=== PATIENT | female | born 1990 | race Caucasian/White ===

== ENCOUNTER 2018-01-31 01:13 | Emergency (ER) | payer MEDICAID ==
[~2018-01-31] VITALS: Ht 165.1 cm; Wt 60.0 kg
[~2018-01-31 01:13] MED LIST: FLUO20TA20 PO; QUET50TA PO; TRAZ100 PO
[2018-01-31 01:17] VITALS: BP 118/66; PULSE 120; RESP 14; O2SAT 100
[2018-01-31 03:58] VITALS: BP 101/61; PULSE 121; RESP 20; O2SAT 99
--- NOTE | 2018-01-31 06:50 | PD ---
HPI Chief Complaint: Alcohol/Drug Intoxication Time Seen by Provider: : Travel History International Travel<30 days: No Contact w/Intl Traveler<30days: No Traveled to known affect area: No History of Present Illness HPI Patient was intoxicated brought in by EMS she is obtunded but protecting her airway satting well vitals are normal she is arousable but we allow her to sleep no signs of injury to the head or any of the long bone report is that she was very intoxicated and friends called because she was so sedated, ROS and HPI limited due to intoxication PFSH Past Medical History Diminished Hearing: No Headaches: Yes (occasional) Hypertension: Yes (gestational only) Immunizations Current: Yes ?: Unknown : 1 Para: 1 Past Surgical History Section: Yes (X1 09/02/09) Social History Alcohol Use: Yes (SOCIALLY) Tobacco Use: Yes (< 1 PPD) Substance Use: Yes (marijuana) Allergies-Medications (Allergen,Severity, Reaction): Coded Allergies: penicillin G (Unverified Allergy, Severe, HIVES, SWELLING, 07/16/17) Reported Meds & Prescriptions Reported Meds & Active Scripts Active Reported Quetiapine Fumarate 50 mg (Quetiapine Fumarate) 50 Mg Tab 50 Mg PO DAILY Trazodone Hcl (Trazodone HCl) 100 Mg Tab 100 Mg PO HS Fluoxetine (Fluoxetine HCl) 20MG Cap 20 Mg PO DAILY Review of Systems ROS Limitations: Intoxication Physical Exam Narrative GENERAL: obtunded intox but airway intact o2 sat 98% on RA and no need for intubation at this time SKIN: Warm and dry. HEAD: Atraumatic. Normocephalic. no lac or signs of trauma. EYES: Pupils equal and round. No scleral icterus. No injection or drainage. ENT: No nasal bleeding or discharge. Mucous membranes pink and moist. NECK: Trachea midline. No JVD. CARDIOVASCULAR: Regular rate and rhythm. RESPIRATORY: No accessory muscle use. Clear to auscultation. Breath sounds equal bilaterally. GASTROINTESTINAL: Abdomen soft, non-tender, nondistended. Hepatic and splenic margins not palpable. MUSCULOSKELETAL: Extremities without clubbing, cyanosis, or edema. No obvious deformities. no lacerations or signs of trauma NEUROLOGICAL: intox unable to perform. PSYCHIATRIC: obtunded intox Data Data Last Documented VS Vital Signs Date Time Temp Pulse Resp B/P (MAP) Pulse Ox O2 Delivery O2 Flow Rate FiO2 3/2/18 08:18 01/31/18 07:09 Room Air Orders Orders Ed Discharge Order (01/31/18 07:01) MDM Medical Decision Making Medical Screen Exam Complete: Yes Emergency Medical Condition: Yes Differential Diagnosis Alcohol intoxication Narrative Course Patient is allowed to sleep examination of her head and long bones on arrival there is no signs of injury or trauma just smells of alcohol patient is allowed to sleep and IN AM EXAM REPEAT GENERAL: SKIN: Warm and dry. HEAD: Atraumatic. Normocephalic. EYES: Pupils equal and round. No scleral icterus. No injection or drainage. ENT: No nasal bleeding or discharge. Mucous membranes pink and moist. NECK: Trachea midline. No JVD. CARDIOVASCULAR: Regular rate and rhythm. RESPIRATORY: No accessory muscle use. Clear to auscultation. Breath sounds equal bilaterally. GASTROINTESTINAL: Abdomen soft, non-tender, nondistended. Hepatic and splenic margins not palpable. MUSCULOSKELETAL: Extremities without clubbing, cyanosis, or edema. No obvious deformities. NEUROLOGICAL: Awake and alert. No obvious cranial nerve deficits. Motor grossly within normal limits. Five out of 5 muscle strength in the arms and legs. Normal speech. PSYCHIATRIC: Appropriate mood and affect; insight and judgment normal. reevaluate in the morning she is awake alert conversant denies any injury examination of her head long bones abdomen nontender and she is discharged to follow-up as an outpatient Diagnosis Primary Impression: Alcohol intoxication without use disorder Qualified Codes: F10.920 - Alcohol use, unspecified with intoxication, uncomplicated Patient Instructions: Alcohol Intoxication (ED), General Instructions Disposition: 01 DISCHARGE HOME Condition: Trey Salcedo MD Jan 31, 2018 06:50
== END 2018-01-31 08:19 | disposition home or self-care (01) ==
LOC: NEPC 01:13
DX: F10.920 Alcohol use, unspecified with intoxication, uncomplicated (principal); F17.210 Nicotine dependence, cigarettes, uncomplicated; Z88.0 Allergy status to penicillin
CPT/HCPCS: 99281

== ENCOUNTER 2018-08-15 23:36 | Inpatient (IN) ==
[2018-08-15] MEDS ORDERED: Haloperidol Inj 5 MG/ML Ampul IM ONE (23:44)
[2018-08-15] MEDS ORDERED: Sod Chloride 0.9% Inj 1,000 ML IV.SIG SCH (23:45)
--- NOTE | 2018-08-16 00:31 | ED ---
HPI General Chief complaint: Psychiatric Symptoms Stated complaint: Psych [employer] Time Seen by Provider: 08/15/18 23:44 History of Present Illness HPI narrative: patient is a 28 year old female presents to the ER for evaluation under Pope Act. According to the BA, officer made contact with her and found her stating that she wanted to and was soon to be . She is belligerent on arrival, slipping her police handcuffs. She is preparing to spit on our security officers. When asked why she is here she responds "fine". She is asked repeatedly and states "i'm fine". She will not provide any history. When asked if she is having any cp/sob/abdominal pain/n.v.d. constipation she states no. The history and physical exam are performed with the nurse science technicians present at all times. Related Data Home Medications Medication Instructions Recorded Confirmed quetiapine [Seroquel] 100 mg PO BID 08/16/18 08/16/18 quetiapine [Seroquel] 400 mg PO HS 08/16/18 08/16/18 trazodone 200 mg PO DAILY 08/16/18 08/16/18 venlafaxine [Effexor XR] 225 mg PO DAILY 08/16/18 08/16/18 Allergies Allergy/AdvReac Type Severity Reaction Status Date / Time penicillin G Allergy Severe HIVES, Verified 08/16/18 01:36 SWELLING Review of Systems ROS: all other systems reviewed are negative [facility] Surgical History Surgical History No history of previous surgery (Acute) Family History Family History Mother Depression Grandparent Hypothyroidism Social History Social History Substance History: No History of Abuse Second Hand Smoke Exposure: No Smoking Status: Current every day smoker Tobacco Type: Cigarettes Packs Per Day: 1 Cigarettes Per Day: 20.0 Years Smoked: 8 Pack-Years: 8.00 How Often Do You Have a Drink Containing Alcohol: 2 to 3 times a week Recent Travel in [facility] within the Last 8 Weeks: No Recent Out of Country Travel within the Last 8 Weeks: No Exam Narrative Exam Narrative: GENERAL: WD/WN belligerent. SKIN: Focused skin assessment warm/dry. HEAD: Atraumatic. Normocephalic. EYES: Pupils equal and round. No scleral icterus. No injection or drainage. ENT: No nasal bleeding or discharge. Mucous membranes pink and moist. NECK: Trachea midline. No JVD. CARDIOVASCULAR: Regular rate and rhythm. No murmur appreciated. RESPIRATORY: No accessory muscle use. Clear to auscultation. Breath sounds equal bilaterally. GASTROINTESTINAL: Abdomen soft, non-tender, nondistended. Hepatic and splenic margins not palpable. MUSCULOSKELETAL: No obvious deformities. No clubbing. No cyanosis. No edema. NEUROLOGICAL: Awake and alert. No obvious cranial nerve deficits. Motor grossly within normal limits. Normal speech. PSYCHIATRIC: Belligerent, unable to assess further. Course Initial Documented Vital Signs Temperature 99.3 F 08/15/18 23:46 Pulse Rate 161 H 08/15/18 23:46 Respiratory Rate 18 08/15/18 23:46 Blood Pressure 171/70 H 08/15/18 23:46 Pulse Oximetry 96 08/15/18 23:46 Last Documented Vital Signs Temperature 98.3 F 08/17/18 05:41 Pulse Rate 90 08/17/18 05:41 Respiratory Rate 17 08/17/18 05:41 Blood Pressure 114/63 08/17/18 05:41 Pulse Oximetry 95 08/17/18 05:41 Sign Out Sign Out Data: Patient Sign Out occurred on 08/16/18 at 01:25. Patient's care was discussed, and care was transferred from Chato Freeman MD to Micaela Anguiano MD. Sign Out Comment: Follow up labs, ekg, reassess after fluids, sedation. HR was 161. Last updated by Chato Freeman MD at 08/16/18 01:12 Patient Sign Out occurred on 08/16/18 at 07:01. Patient's care was discussed, and care was transferred from Micaela Anguiano MD to Iris Watkins DO. Sign Out Comment: follow urine, reassess vitals after additional fluid and monitor after sedation given Last updated by Micaela Anguiano MD at 08/16/18 06:44 Post-Handoff Eval: Patient received as a sign-out from Dr. Anguiano. [id number] brought in under a Pope Act by police. As per BA form, the patient was listed as a missing or endanger person out of [facility], was found by officer crying and saying that she "wanted to and would soon be ". She arrived to the ED combative and agitation requiring sedation and restraints to prevent herself from harming herself or others. The patient is now awake and alert, says "I was at [facility] in May for alcohol, I wanted to go back , so I drank until I blacked out". She does not recall the events of last evening and denies current SI/ HI or hallucinations. Well-appearing, no agitation NCAT, PERRL Borderline tachy to 110s, regular Lungs clear bilaterally Abdomen soft and non-tender GCS 15, speech clear and fluent Calm, does not appear to be internally preoccupied Workup shows elevated EtOH, minimally elevated initial salicylate level ( trending down), drug screen/ APAP negative, TSH elevated but normal T4. Patient' s tachycardia is much improved with IV fluids. There is no medical contraindication to her being evaluated by psychiatry. Medical Decision Making MDM Narrative Medical decision making narrative: Patient room to the emergency department, gareth on arrival, she has a heart rate of 161 and she is adamantly refusing for any evaluation. She required sedation on arrival. She refuses sedation as well, I went to reexamine and interview the patient science technicians still present, asked her again when she was here for and she continued to state that she would not answer my questions because 1 of the nurses declined to give her Vaseline and she was the devil. She was placed in four-point restraints as he mainly as possible to avoid an injury, she was also chemically sedated with Ativan and Haldol. After sedation the patient is being her wrist restraint against the rail. Awaiting sedation 2 CAT scans of the patient can receive an IV normal saline bolus as well as basic labs and EKG. The patient was discussed with Dr. Micaela Anguiano at 0100 shift change. Medical Screen Exam Complete: Yes Emergency Medical Condition: Yes Lab Data Result diagrams: 08/16/18 02:59 08/16/18 02:59 POC Results POC Urine Results Negative Lab Results 08/16/18 08/16/18 08/16/18 Range/Units 00:05 00:05 02:59 WBC 12.8 H (4.0-11.0) th/mm3 RBC 4.59 (4.00-5.30) mil/mm3 Hgb 14.3 (11.6-15.3) gm/dL Hct 41.9 (35.0-46.0) % MCV 91.3 (80.0-100.0) fL MCH 31.3 (27.0-34.0) pg MCHC 34.2 (32.0-36.0) % RDW 13.1 (11.6-17.2) % Plt Count 249 (150-450) th/mm3 MPV 8.1 (7.0-11.0) fL Neut % (Auto) 67.0 (16.0-70.0) % Lymph % (Auto) 21.5 (9.0-44.0) % [place] % (Auto) 11.0 H (0.0-8.0) % Eos % (Auto) 0.1 (0.0-4.0) % Baso % (Auto) 0.4 (0.0-2.0) % Neut # (Auto) 8.5 H (1.8-7.7) th/mm3 Lymph # (Auto) 2.7 (1.0-4.8) th/mm3 [place] # (Auto) 1.4 H (0.0-0.9) th/mm3 Eos # (Auto) 0.0 (0.0-0.4) th/mm3 Baso # (Auto) 0.0 (0.0-0.2) th/mm3 WBC Differential . Differential Comment Auto diff final Sodium (136-145) meq/L Potassium (3.5-5.1) meq/L Chloride (98-107) meq/L Carbon Dioxide (21.0-32.0) meq/L Anion Gap (5-15) meq/L BUN (7-18) mg/dL Creatinine (0.50-1.00) mg/dL Estimated GFR (>89) mL/min Random Glucose (74-106) mg/dL Calcium (8.5-10.1) mg/dL Total Bilirubin (0.2-1.0) mg/dL AST (15-37) U/L ALT (10-53) U/L Alkaline Phosphatase (45-117) U/L Total Protein (6.4-8.2) g/dL Albumin (3.4-5.0) g/dL TSH (0.358-3.740) uIU/mL Free T4 (0.76-1.46) ng/dL Free T3 (2.18-3.98) pg/mL Urine Color Yellow (Yellw/Straw) Urine Clarity Cloudy H (Clear) Urine pH 5.0 (5.0-8.5) Ur Specific [place] 1.023 (1.002-1.035) Urine Protein 30 H (Neg-Trace) mg/dL Urine Glucose (UA) Negative (Negative) mg/dL Urine Ketones Negative (Negative) mg/dL Urine Occult Blood Negative (Negative) Urine Nitrate Negative (Negative) Urine Bilirubin Negative (Negative) Urine Urobilinogen Less than 2 (Less than 2) mg/dL Ur Leukocyte Esterase Negative (Negative) Urine RBC 5 H (0-3) /hpf Urine WBC 13 H (0-5) /hpf Ur Squamous Epith Cells 81 (0-5) /hpf Amorphous Sediment Few H (None) /hpf Urine Mucus Many H (Occasional) /lpf Micro UA Comment Culture indicated Ur Microscopic Review Not Reportable Urine Culture Comments Culture indicated Salicylates (2.8-20.0) mg/dL Urine Opiates Screen Neg (Neg) Acetaminophen (10.0-30.0) mcg/mL Ur Barbiturates Screen Neg (Neg) Ur Amphetamines Screen Neg (Neg) U Benzodiazepines Scrn Neg (Neg) Niotaze (0.5-1.5) meq/L Urine Cocaine Screen Neg (Neg) U Cannabinoids Screen Neg (Neg) Serum Alcohol (0-5) mg/dL 08/16/18 08/16/18 08/16/18 Range/Units 02:59 02:59 02:59 WBC (4.0-11.0) th/mm3 RBC (4.00-5.30) mil/mm3 Hgb (11.6-15.3) gm/dL Hct (35.0-46.0) % MCV (80.0-100.0) fL MCH (27.0-34.0) pg MCHC (32.0-36.0) % RDW (11.6-17.2) % Plt Count (150-450) th/mm3 MPV (7.0-11.0) fL Neut % (Auto) (16.0-70.0) % Lymph % (Auto) (9.0-44.0) % [place] % (Auto) (0.0-8.0) % Eos % (Auto) (0.0-4.0) % Baso % (Auto) (0.0-2.0) % Neut # (Auto) (1.8-7.7) th/mm3 Lymph # (Auto) (1.0-4.8) th/mm3 [place] # (Auto) (0.0-0.9) th/mm3 Eos # (Auto) (0.0-0.4) th/mm3 Baso # (Auto) (0.0-0.2) th/mm3 WBC Differential Differential Comment Sodium 146 H (136-145) meq/L Potassium 3.8 (3.5-5.1) meq/L Chloride 111 H (98-107) meq/L Carbon Dioxide 24.2 (21.0-32.0) meq/L Anion Gap 11 (5-15) meq/L BUN 10 (7-18) mg/dL Creatinine 0.93 (0.50-1.00) mg/dL Estimated GFR 72 L (>89) mL/min Random Glucose 104 (74-106) mg/dL Calcium 7.9 L (8.5-10.1) mg/dL Total Bilirubin 0.4 (0.2-1.0) mg/dL AST 21 (15-37) U/L ALT 18 (10-53) U/L Alkaline Phosphatase 62 (45-117) U/L Total Protein 7.9 (6.4-8.2) g/dL Albumin 4.2 (3.4-5.0) g/dL TSH 12.200 H (0.358-3.740) uIU/mL Free T4 (0.76-1.46) ng/dL Free T3 (2.18-3.98) pg/mL Urine Color (Yellw/Straw) Urine Clarity (Clear) Urine pH (5.0-8.5) Ur Specific [place] (1.002-1.035) Urine Protein (Neg-Trace) mg/dL Urine Glucose (UA) (Negative) mg/dL Urine Ketones (Negative) mg/dL Urine Occult Blood (Negative) Urine Nitrate (Negative) Urine Bilirubin (Negative) Urine Urobilinogen (Less than 2) mg/dL Ur Leukocyte Esterase (Negative) Urine RBC (0-3) /hpf Urine WBC (0-5) /hpf Ur Squamous Epith Cells (0-5) /hpf Amorphous Sediment (None) /hpf Urine Mucus (Occasional) /lpf Micro UA Comment Ur Microscopic Review Urine Culture Comments Salicylates 4.2 (2.8-20.0) mg/dL Urine Opiates Screen (Neg) Acetaminophen Less than 2.0 L (10.0-30.0) mcg/mL Ur Barbiturates Screen (Neg) Ur Amphetamines Screen (Neg) U Benzodiazepines Scrn (Neg) Niotaze 0.1 L (0.5-1.5) meq/L Urine Cocaine Screen (Neg) U Cannabinoids Screen (Neg) Serum Alcohol 153 H (0-5) mg/dL 08/16/18 08/16/18 Range/Units 02:59 09:25 WBC (4.0-11.0) th/mm3 RBC (4.00-5.30) mil/mm3 Hgb (11.6-15.3) gm/dL Hct (35.0-46.0) % MCV (80.0-100.0) fL MCH (27.0-34.0) pg MCHC (32.0-36.0) % RDW (11.6-17.2) % Plt Count (150-450) th/mm3 MPV (7.0-11.0) fL Neut % (Auto) (16.0-70.0) % Lymph % (Auto) (9.0-44.0) % [place] % (Auto) (0.0-8.0) % Eos % (Auto) (0.0-4.0) % Baso % (Auto) (0.0-2.0) % Neut # (Auto) (1.8-7.7) th/mm3 Lymph # (Auto) (1.0-4.8) th/mm3 [place] # (Auto) (0.0-0.9) th/mm3 Eos # (Auto) (0.0-0.4) th/mm3 Baso # (Auto) (0.0-0.2) th/mm3 WBC Differential Differential Comment Sodium (136-145) meq/L Potassium (3.5-5.1) meq/L Chloride (98-107) meq/L Carbon Dioxide (21.0-32.0) meq/L Anion Gap (5-15) meq/L BUN (7-18) mg/dL Creatinine (0.50-1.00) mg/dL Estimated GFR (>89) mL/min Random Glucose (74-106) mg/dL Calcium (8.5-10.1) mg/dL Total Bilirubin (0.2-1.0) mg/dL AST (15-37) U/L ALT (10-53) U/L Alkaline Phosphatase (45-117) U/L Total Protein (6.4-8.2) g/dL Albumin (3.4-5.0) g/dL TSH (0.358-3.740) uIU/mL Free T4 1.07 (0.76-1.46) ng/dL Free T3 4.77 H (2.18-3.98) pg/mL Urine Color (Yellw/Straw) Urine Clarity (Clear) Urine pH (5.0-8.5) Ur Specific [place] (1.002-1.035) Urine Protein (Neg-Trace) mg/dL Urine Glucose (UA) (Negative) mg/dL Urine Ketones (Negative) mg/dL Urine Occult Blood (Negative) Urine Nitrate (Negative) Urine Bilirubin (Negative) Urine Urobilinogen (Less than 2) mg/dL Ur Leukocyte Esterase (Negative) Urine RBC (0-3) /hpf Urine WBC (0-5) /hpf Ur Squamous Epith Cells (0-5) /hpf Amorphous Sediment (None) /hpf Urine Mucus (Occasional) /lpf Micro UA Comment Ur Microscopic Review Urine Culture Comments Salicylates 3.2 (2.8-20.0) mg/dL Urine Opiates Screen (Neg) Acetaminophen (10.0-30.0) mcg/mL Ur Barbiturates Screen (Neg) Ur Amphetamines Screen (Neg) U Benzodiazepines Scrn (Neg) Niotaze (0.5-1.5) meq/L Urine Cocaine Screen (Neg) U Cannabinoids Screen (Neg) Serum Alcohol (0-5) mg/dL ECG Data Attestation: I personally reviewed and interpreted this ECG as follows: Interpretation: Rate: 103 BPM Rhythm: Sinus arrhythmia Ashley: Normal Intervals: Normal intervals, no blocks, QTc 400 ms Q waves: None T waves: Upright, no inversions ST segments: No elevations or depressions Impression: Non-specific EKG, no changes as compared to EKG from 09/08/2009. Discharge Plan Discharge Disposition Patient Disposition: 30 Still Patient Physicians Team ED Provider: Iris Watkins Primary Care Provider: UNKNOWN, Attending Provider: Ken Quiles Other Providers: Nellie Cheney Status ED Status: Left Department Discharge Information Discharge Date/Time: 08/16/18 15:51
[2018-08-16 03:08] LABS: Baso % (Auto) 0.4 % (0.0-2.0); Eos % (Auto) 0.1 % (0.0-4.0); Hematocrit 41.9 % (35.0-46.0); Hemoglobin 14.3 gm/dL (11.6-15.3); Lymph # (Auto) 2.7 th/mm3 (1.0-4.8); Lymph % (Auto) 21.5 % (9.0-44.0); Mean Corpuscular HGB Conc 34.2 % (32.0-36.0); Mean Corpuscular Hemoglobin 31.3 pg (27.0-34.0); Mean Corpuscular Volume 91.3 fL (80.0-100.0); Mean Platelet Volume 8.1 fL (7.0-11.0); Mono # (Auto) 1.4 th/mm3 (0.0-0.9); Neut # (Auto) 8.5 th/mm3 (1.8-7.7); Platelet Count 249 th/mm3 (150-450); Red Blood Count 4.59 mil/mm3 (4.00-5.30); Red Cell Distribution Width 13.1 % (11.6-17.2); White Blood Count 12.8 th/mm3 (4.0-11.0)
[2018-08-16 03:31] LABS: Alanine Aminotransferase 18 U/L (10-53); Albumin 4.2 g/dL (3.4-5.0); Anion Gap 11 meq/L (5-15); Aspartate Aminotransferase 21 U/L (15-37); Blood Urea Nitrogen 10 mg/dL (7-18); Calcium 7.9 mg/dL (8.5-10.1); Carbon Dioxide 24.2 meq/L (21.0-32.0); Chloride 111 meq/L (98-107); Glomerular Filtration Rate 72 mL/min (>89); Glucose,Random 104 mg/dL (74-106); Potassium 3.8 meq/L (3.5-5.1); Sodium 146 meq/L (136-145)
[2018-08-16 03:37] LABS: Alcohol 153 mg/dL (0-5)
[2018-08-16 03:41] LABS: Alkaline Phosphatase 62 U/L (45-117); Total Protein 7.9 g/dL (6.4-8.2)
[2018-08-16 04:53] LABS: Amphetamine Screen,Urine Neg (Neg); Barbiturate Screen,Urine Neg (Neg); Cannabinoid Screen,Urine Neg (Neg); Cocaine Screen,Urine Neg (Neg)
[2018-08-16 05:00] LABS: Opiate Screen,Urine Neg (Neg)
[2018-08-16 05:36] LABS: Free T4 (Free Thyroxine) 1.07 ng/dL (0.76-1.46); Triiodothyronine (T3) Free 4.77 pg/mL (2.18-3.98)
[2018-08-16] MEDS: Sod Chloride 0.9% Inj 1,000 ML IV.SIG SCH ×2 (05:42→08:17)
[2018-08-16] MEDS ORDERED: Sod Chloride 0.9% Inj 1,000 ML IV.SIG SCH ×2 (05:45→06:15)
[2018-08-16 07:06] LABS: Amorphous Sediment,Urine Few /hpf; Bilirubin,Urine Negative (Negative); Clarity,Urine Cloudy (Clear); Color,Urine Yellow (Yellw/Straw); Glucose,Urine (UA) Negative (Negative); Leukocyte Esterase,Urine Negative (Negative); Mucus,Urine Many /lpf (Occasional); Nitrite,Urine Negative (Negative); Specific Gravity,Urine 1.023 (1.002-1.035); Squamous Epithelial Cell,Urine 81 /hpf (0-5)
[2018-08-16] MEDS ORDERED: QUEtiapine 100 MG Tablet PO ONE (07:47)
[2018-08-16] MEDS ORDERED: Sod Chloride 0.9% Inj 1,000 ML IV.SIG ONE (07:48)
--- NOTE | 2018-08-16 11:16 | P.PNPSY ---
Came to evaluate patient for Pope Act. She remains too intoxicated for valid psychiatric interview at this point. Will plan to re-eval later.
[2018-08-16] MEDS ORDERED: Benztropine Inj 2 MG/2 ML Ampul IM PRN (15:00)
[2018-08-16] MEDS ORDERED: Acetaminophen 325 MG Tablet PO PRN (15:00)
[2018-08-16] MEDS ORDERED: Aluminum/Magnesium/Simethacone Susp 30 ML UDC PO PRN (15:00)
--- NOTE | 2018-08-16 15:11 | P.HPPSY ---
Provisional Diagnosis Admission Date: August 15, 2018 23:36 Natalia I.: 1. Bipolar disorder, presently depressed 2. Alcohol use disorder Natalia II.: Deferred Competence Certification of Person's Competence To Provide Express and Informed Consent I have personally examined Solange Rain, a person being served at [facility] on, August 16, 2018 1510. Express and informed consent means consent voluntarily given in writing, by a competent person, after sufficient explanation and disclosure of the subject matter involved to enable the person to make a knowing and willful decision without any element of force, fraud, deceit, duress, or other form of constraint or coercion. This person is 18 years of age or older, is not now known to be incompetent to consent to treatment with a guardian advocate, and does not have a health care surrogate or proxy currently making medical treatment decisions. I have found this person to be one of the following: [X] Competent to provide express and informed consent, as defined above, for voluntary admission to this facility and is competent to provide express and informed consent for treatment. He/she has the consistent capacity to make well reasoned, willful, and knowing decisions concerning his or her medical or mental health treatment. The person fully and consistently understands the purpose of the admission for examination/placement and is fully capable of personally exercising all rights assured [place] Incompetent to provide express and informed consent to voluntary admission, and this is incompetent to provide express and informed consent to treatment. The person must be transferred to involuntary status and a petition for a guardian advocate filed with the Circuit Court. [] Refusing to provide express and informed consent to voluntary admission but is competent to provide express and informed consent for treatment. The person must be discharged or transferred to involuntary status. Form shall be completed within 24 hours of a person's arrival at the receiving facility and filed in the clinical record of each person: 1. Admitted on a voluntary basis 2. Permitted to provide express and informed consent to his/her own treatment 3. Allowed to transfer from involuntary to voluntary status 4. Prior to permitting a person to consent to his or her own treatment after having been previously found incompetent to consent to treatment. History of Present Illness Capacity: Has capacity Chief Complaint: Depression History of Present Illness: Ms. Rain is a 28-year-old female with a reported history of bipolar illness and anxiety who presents under a Pope act by law enforcement alleging suicidal ideation. She was intoxicated with alcohol on presentation here and was somewhat combative. Reviewing the electronic medical record, I note that the patient has a history of ED visits for substance use issues but no previous psychiatric admissions within our system. Patient seen and examined. Chart reviewed. Case discussed with nursing staff. On my reevaluation now, the patient is considerably clearer. She is clinically sober. She presents as anhedonic and withdrawn. She says that she has been feeling depressed for the last 1-2 months in the setting of trying to cut down her alcohol use. She endorses hopeless, worthless and guilty feelings. Her concentration and energy levels are poor. She denies any suicidal ideation at this time though and says she has no recollection of making any sort of suicidal statements to officers. She reports a questionable history of hypomanic/manic episodes in the past. Denies any audiovisual hallucinations. Denies any command auditory hallucinations. She says "I do not have a lot of hopes." Remainder of the psychiatric ROS is negative. No acute physical complaints. Past psychiatric history: Patient reports previous diagnoses as noted above. She follows at [facility] and is reportedly prescribed Seroquel. She reports that, Effexor and trazodone. She does not believe that the daytime dose of Seroquel is holding her throughout the day. She was most recently admitted to [facility] in May for suicidal ideation in the setting of alcohol. She denies a history of suicide attempts. Denies a history of nonsuicidal self- injurious behavior. She does endorse a history of domestic battery charges but otherwise reports no history of violence behavior. Family history: The patient denies a family history of mental illness or suicide. Chemical dependency history: The patient reports she has been drinking 1-2 pints of liquor daily. Last use was prior to admission. She denies a history of DTs or seizures. She does endorse a history of 2 previous DUIs. No reported substance use otherwise. Social history: She lives with her cousin. She is high school educated. She is unemployed. She is single with a 9-year-old daughter who resides with her mother. She denies any history. Denies any legal history. Denies any access to guns or firearms. Denies any nondenominational or spiritual beliefs. Denies any history of trauma. I called over to [facility] for med list: Seroquel 50mg BID and 400mg qHS Effexor XR 225mg daily trazodone 200mg qHS. - Inpatient Certification I certify that the inpatient services were ordered in accordance with Medicare regulations governing the order. This includes certification that hospital inpatient services are reasonable and necessary and in the case of services not specified as inpatient-only under 42 CFR 419.22(n), that they are appropriately provided as inpatient services in accordance to with the 2-midnight benchmark under 43 CFR 412.3(e) I certify that inpatient psychiatric hospital services are medically necessary. Evaluation and treatment and/or diagnostic testing are expected to improve the patient's condition. The patient needs on a daily basis, active treatment furnished directly by or requiring the supervision of inpatient psychiatric facility personnel. Estimated Total Length of Stay (Days): 7 Plans for Post Hospital Care: Not yet determined Review of Systems All other systems reviewed negative except as stated in [facility] - History History Provided By: Law Enforcement - Medical History Medical History: Medical History (Last Updated 08/15/18 @ 23:50 by Ye Hester) Patient denies medical problems Surgical history unknown - Tobacco History Tobacco Use In Past 30 Days: Yes Smoking Status: Current every day smoker Tobacco Type: Cigarettes - Alcohol History How Often Do You Have a Drink Containing Alcohol: 4 or more times a week - Substance Use History Substance History: Active Abuse - Travel History Recent Travel in the [place] Within the Last 8 Weeks: No Recent Travel Out of the Country Within the Last 8 Weeks: No - Immunization History Tetanus Immunization: >5 Years Hx Influenza Vaccine This Season: No Quality Measures - Psychiatric History Psychological trauma history: See above - Patient Strengths Patient's strengths (minimum of 2): In a monitored setting. Verbally fluent. Medications and Allergies Active Medications: Active Medications Acetaminophen (Tylenol) 650 mg PO Q4H PRN PRN Reason: Pain 1-5 or Temp >101F Al Hydrox/Mg Hydrox/Simethicone (Mag-Al Plus Susp Liq) 30 ml PO Q6H PRN PRN Reason: DYSPEPSIA Al Hydroxide/Mg Hydroxide (Milk Of Magnesia Liq) 30 ml PO Q12H PRN PRN Reason: Mild Constipation Benztropine Mesylate (Cogentin) 1 mg PO Q12H PRN PRN Reason: EXTRA PYRAMIDAL SYMPTOMS Benztropine Mesylate (Cogentin Inj) 1 mg IM Q12H PRN PRN Reason: EXTRA PYRAMIDAL SYMPTOMS Flumazenil (Romazecon Inj) 0.2 mg IV.PUSH Q1M PRN PRN Reason: OVERSEDATION Folic Acid (Folic Acid) 1 mg PO DAILY [facility] Stop: 08/22/18 08:59 Hydroxyzine HCl (Atarax) 50 mg PO Q6H PRN PRN Reason: ANXIETY Sodium Chloride (Ns Inj) 1,000 mls @ 0 mls/hr IV.SIG BOLUS ANA Last Infusion: 08/16/18 09:59 Dose: Infused Sodium Chloride (Ns Inj) 1,000 mls @ 0 mls/hr IV.SIG BOLUS ANA Sodium Chloride (Ns Inj) 1,000 mls @ 0 mls/hr IV.SIG BOLUS ANA Lorazepam (Ativan) 1 mg PO Q4H PRN PRN Reason: for CIWA 8-10 Lorazepam (Ativan) 2 mg PO Q2H PRN PRN Reason: for CIWA 11-14 Lorazepam (Ativan Inj) 2 mg IV.PUSH Q2H PRN PRN Reason: for CIWA 11-14 Lorazepam (Ativan Inj) 2 mg IV.PUSH Q1H PRN PRN Reason: for CIWA 15-20 Lorazepam (Ativan Inj) 2 mg IV.PUSH Q15M PRN PRN Reason: for CIWA > 20 Lorazepam (Ativan Inj) 1 mg IV.PUSH Q4H PRN PRN Reason: for CIWA 8-10 Melatonin (Melatonin) 5 mg PO HS PRN PRN Reason: INSOMNIA Multivitamins/Minerals (Theragran-M) 1 tab PO DAILY [facility] Stop: 08/22/18 08:59 Nicotine (Habitrol 21 Mg Patch.24 Hr) 1 patch T-DERMAL DAILY PRN PRN Reason: Nicotine craving Non-Formulary Medication (Quetiapine [Seroquel]) 400 mg PO HS [facility] Patch Removal (Remove Old Patch) 1 each T-DERMAL DAILY [facility] Quetiapine Fumarate (Seroquel) 100 mg PO BID@15 [facility] Thiamine HCl (Vitamin B1) 100 mg PO DAILY [facility] Trazodone HCl (Desyrel) 200 mg PO HS [facility] Venlafaxine HCl (Effexor Xr) 225 mg PO DAILY [facility] Allergies Allergy/AdvReac Type Severity Reaction Status Date / Time penicillin G Allergy Severe HIVES, Verified 08/16/18 01:36 SWELLING Home Medications Medication Instructions Recorded Confirmed Type quetiapine [Seroquel] 100 mg PO BID 08/16/18 08/16/18 History quetiapine [Seroquel] 400 mg PO HS 08/16/18 08/16/18 History trazodone 200 mg PO DAILY 08/16/18 08/16/18 History venlafaxine [Effexor XR] 225 mg PO DAILY 08/16/18 08/16/18 History Results - Labs CBC & Chem 7: 08/16/18 02:59 08/16/18 02:59 Labs: Laboratory Results - last 24 hr 08/16/18 08/16/18 08/16/18 00:05 00:05 02:59 WBC 12.8 H RBC 4.59 Hgb 14.3 Hct 41.9 MCV 91.3 MCH 31.3 MCHC 34.2 RDW 13.1 Plt Count 249 MPV 8.1 Neut % (Auto) 67.0 Lymph % (Auto) 21.5 Real % (Auto) 11.0 H Eos % (Auto) 0.1 Baso % (Auto) 0.4 Neut # (Auto) 8.5 H Lymph # (Auto) 2.7 Real # (Auto) 1.4 H Eos # (Auto) 0.0 Baso # (Auto) 0.0 WBC Differential . Differential Comment Auto diff final Sodium Potassium Chloride Carbon Dioxide Anion Gap BUN Creatinine Estimated GFR Random Glucose Calcium Total Bilirubin AST ALT Alkaline Phosphatase Total Protein Albumin TSH Free T4 Free T3 Urine Color Yellow Urine Clarity Cloudy H Urine pH 5.0 Ur Specific [place] 1.023 Urine Protein 30 H Urine Glucose (UA) Negative Urine Ketones Negative Urine Occult Blood Negative Urine Nitrate Negative Urine Bilirubin Negative Urine Urobilinogen Less than 2 Ur Leukocyte Esterase Negative Urine RBC 5 H Urine WBC 13 H Ur Squamous Epith Cells 81 Amorphous Sediment Few H Urine Mucus Many H Micro UA Comment Culture indicated Ur Microscopic Review Not Reportable Urine Culture Comments Culture indicated Salicylates Urine Opiates Screen Neg Acetaminophen Ur Barbiturates Screen Neg Ur Amphetamines Screen Neg U Benzodiazepines Scrn Neg [address] Urine Cocaine Screen Neg U Cannabinoids Screen Neg Serum Alcohol 08/16/18 08/16/18 08/16/18 02:59 02:59 02:59 WBC RBC Hgb Hct MCV MCH MCHC RDW Plt Count MPV Neut % (Auto) Lymph % (Auto) Real % (Auto) Eos % (Auto) Baso % (Auto) Neut # (Auto) Lymph # (Auto) Real # (Auto) Eos # (Auto) Baso # (Auto) WBC Differential Differential Comment Sodium 146 H Potassium 3.8 Chloride 111 H Carbon Dioxide 24.2 Anion Gap 11 BUN 10 Creatinine 0.93 Estimated GFR 72 L Random Glucose 104 Calcium 7.9 L Total Bilirubin 0.4 AST 21 ALT 18 Alkaline Phosphatase 62 Total Protein 7.9 Albumin 4.2 TSH 12.200 H Free T4 Free T3 Urine Color Urine Clarity Urine pH Ur Specific [place] Urine Protein Urine Glucose (UA) Urine Ketones Urine Occult Blood Urine Nitrate Urine Bilirubin Urine Urobilinogen Ur Leukocyte Esterase Urine RBC Urine WBC Ur Squamous Epith Cells Amorphous Sediment Urine Mucus Micro UA Comment Ur Microscopic Review Urine Culture Comments Salicylates 4.2 Urine Opiates Screen Acetaminophen Less than 2.0 L Ur Barbiturates Screen Ur Amphetamines Screen U Benzodiazepines Scrn [address] 0.1 L Urine Cocaine Screen U Cannabinoids Screen Serum Alcohol 153 H 08/16/18 08/16/18 02:59 09:25 WBC RBC Hgb Hct MCV MCH MCHC RDW Plt Count MPV Neut % (Auto) Lymph % (Auto) Real % (Auto) Eos % (Auto) Baso % (Auto) Neut # (Auto) Lymph # (Auto) Real # (Auto) Eos # (Auto) Baso # (Auto) WBC Differential Differential Comment Sodium Potassium Chloride Carbon Dioxide Anion Gap BUN Creatinine Estimated GFR Random Glucose Calcium Total Bilirubin AST ALT Alkaline Phosphatase Total Protein Albumin TSH Free T4 1.07 Free T3 4.77 H Urine Color Urine Clarity Urine pH Ur Specific [place] Urine Protein Urine Glucose (UA) Urine Ketones Urine Occult Blood Urine Nitrate Urine Bilirubin Urine Urobilinogen Ur Leukocyte Esterase Urine RBC Urine WBC Ur Squamous Epith Cells Amorphous Sediment Urine Mucus Micro UA Comment Ur Microscopic Review Urine Culture Comments Salicylates 3.2 Urine Opiates Screen Acetaminophen Ur Barbiturates Screen Ur Amphetamines Screen U Benzodiazepines Scrn [address] Urine Cocaine Screen U Cannabinoids Screen Serum Alcohol Labs reviewed. Urinalysis reviewed. Urine culture pending. ED point of care test negative. EKG read as sinus tachycardia with a QTC of 413 ms, not prolonged. Exam Vital signs: Vital Signs 08/15/18 23:46 08/16/18 03:19 08/16/18 05:40 Temperature 99.3 F Pulse Rate 161 H 130 H Respiratory Rate 18 18 Blood Pressure 171/70 H 171/70 H 130/79 Pulse Oximetry 96 97 08/16/18 07:00 08/16/18 07:15 08/16/18 08:25 Temperature 99.6 F Pulse Rate 107 H 107 H 110 H Respiratory Rate 20 Blood Pressure 125/81 Pulse Oximetry 98 08/16/18 11:22 08/16/18 14:30 Temperature 99.5 F Pulse Rate 130 H 95 H Respiratory Rate 20 20 Blood Pressure 128/86 128/66 Pulse Oximetry 98 99 Intake & Output 08/15/18 08/16/18 08/16/18 18:59 06:59 18:59 Intake Total 1999 Balance 1999 Weight 72.575 kg Intake: IV 1999 NS Inj 1,000 ML @ Wide Open IV. 1999 SIG BOLUS ANA Rx#:[id number] Narrative: Physical examination completed by ED provider. On my examination today, the patient appears to be in no acute physical distress. No motor abnormalities noted. No signs of intoxication or withdrawal noted at this point. Labs and vital signs reviewed: Mental Status Examination Appearance: Disheveled Consciousness: Alert Orientation: x4 Motor Activity: Normal gait Speech: Slow Language: Adequate Fund of Knowledge: Adequate Attention and Concentration: Adequate Memory: Unremarkable (Grossly intact on clinical exam) Mood: Other (Depressed) Affect: Other (Restricted) Thought Process & Associations: Intact, Logical, Linear Thought Content: Appropriate Hallucination Type: None Delusion Type: None Suicidal Ideation: No Suicidal Plan: No Suicidal Intention: No Homicidal Ideation: No Homicidal Plan: No Homicidal Intention: No Insight: Fair Judgment: Impulsive Assessment and Plan - Assessment (1) Bipolar affective disorder, depressed Code(s): F31.30 - Bipolar disorder, current episode depressed, mild or moderate severity, unspecified Status: Acute (2) Alcohol dependence Code(s): F10.20 - Alcohol dependence, uncomplicated Status: Acute - Plan Plan: 28-year-old female with psychiatric history as detailed above who presents under a Pope act. Patient was making suicidal statements per Pope act. Although she presently denies suicidal ideation she does appear quite depressed and has several risk factors for ongoing self-harm including the low mood and substance use issues. I will plan to admit the patient to the inpatient psychiatric unit for safety, observation and stabilization. Admit inpatient. Voluntary status. Titrate Seroquel to 100 mg twice a day and 400 mg at bedtime. Continue Effexor 225 mg daily and trazodone 200 mg at bedtime as ordered on an outpatient basis. Atarax as needed for anxiety, melatonin as needed for sleep. CIWA scale with Ativan for the management of any withdrawal. Thiamine and folate. Seizure precautions. R/B/A for medications discussed with patient. I will request hospitalist consultation for her laboratory abnormalities. Vitals every shift. Counselor to see. Disposition planning. Estimated length of stay: 5-7 days. Justification for Continued Inpatient Stay: See above Discharge Planning: Pending psychiatric stabilization. Request Healthcare Surrogate/Guardian Advocate?: No
--- NOTE | 2018-08-16 16:23 | P.CONIM ---
History of Present Illness Service: Hospitalist Consult date: 08/16/18 Requesting Physician: Ken Quiles Reason for Consult: Leukocytosis, abnormal TFTs Primary Care Provider: UNKNOWN History of Present Illness: 28 year old female with a history of bipolar disorder, anxiety, and EtOH abuse admitted under [place] to psychiatry for alleging suicidal ideation to law enforcement. The patient presented acutely intoxicated and combative requiring Ativan, Haldol, and restraints. On my evaluation, she is much more calm, cooperative, and off restraints. She reports she is here for "alcohol and stuff." She states she has a history of EtOH abuse drinking 2-3 pints of any liquor daily. Last drink was yesterday but prior to that she states she had tried to quit and hadn't had anything to drink for about a week. She denies any current suicidal ideations. She admits to feeling depressed. When inquired about symptoms of hypothyroidism, she states that she has had unintentional weight gain but she always attributed it to her meds. She also endorses constipation, dry skin, cold intolerance, and irregular menstrual cycles. She reports her grandmother has hypothyroidism. She agrees to start medication for it and understands that she will need outpatient follow-up and monitoring. Regarding the leukocytosis, she endorses intermittent dysuria that is resolved with cranberry juice. She denies cough, fever, shortness of breath, or skin rash. Review of Systems All other systems reviewed negative except as stated in HPI PMFSH - History History Provided By: Patient - Medical History Medical History: Medical History (Last Reviewed 08/16/18 @ 16:35 by Nellie Cheney MD) Bipolar disorder Depression - Surgical History Surgical History: Surgical History (Last Updated 08/16/18 @ 16:35 by Nellie Cheney MD) No history of previous surgery - Family History Family History: Family History (Last Updated 08/16/18 @ 16:35 by Nellie Cheney MD) Mother Depression Grandparent Hypothyroidism - Tobacco History Tobacco Use In Past 30 Days: Yes Smoking Status: Current every day smoker Tobacco Type: Cigarettes Packs Per Day: 1 Years Smoked: 8 - Alcohol History How Often Do You Have a Drink Containing Alcohol: 4 or more times a week (2-3 pints of liquor daily) - Substance Use History Substance History: Active Abuse - Travel History Recent Travel in the [place] Within the Last 8 Weeks: No Recent Travel Out of the Country Within the Last 8 Weeks: No - Immunization History Tetanus Immunization: >5 Years Hx Influenza Vaccine This Season: No Medications and Allergies Active Medications: Active Medications Acetaminophen (Tylenol) 650 mg PO Q4H PRN PRN Reason: Pain 1-5 or Temp >101F Al Hydrox/Mg Hydrox/Simethicone (Mag-Al Plus Susp Liq) 30 ml PO Q6H PRN PRN Reason: DYSPEPSIA Al Hydroxide/Mg Hydroxide (Milk Of Magnesia Liq) 30 ml PO Q12H PRN PRN Reason: Mild Constipation Benztropine Mesylate (Cogentin) 1 mg PO Q12H PRN PRN Reason: EXTRA PYRAMIDAL SYMPTOMS Benztropine Mesylate (Cogentin Inj) 1 mg IM Q12H PRN PRN Reason: EXTRA PYRAMIDAL SYMPTOMS Flumazenil (Romazecon Inj) 0.2 mg IV.PUSH Q1M PRN PRN Reason: OVERSEDATION Folic Acid (Folic Acid) 1 mg PO DAILY ANA Stop: 08/22/18 08:59 Hydroxyzine HCl (Atarax) 50 mg PO Q6H PRN PRN Reason: ANXIETY Sodium Chloride (Ns Inj) 1,000 mls @ 0 mls/hr IV.SIG BOLUS ANA Last Infusion: 08/16/18 09:59 Dose: Infused Sodium Chloride (Ns Inj) 1,000 mls @ 0 mls/hr IV.SIG BOLUS ANA Sodium Chloride (Ns Inj) 1,000 mls @ 0 mls/hr IV.SIG BOLUS ANA Lorazepam (Ativan) 1 mg PO Q4H PRN PRN Reason: for CIWA 8-10 Lorazepam (Ativan) 2 mg PO Q2H PRN PRN Reason: for CIWA 11-14 Lorazepam (Ativan Inj) 2 mg IV.PUSH Q2H PRN PRN Reason: for CIWA 11-14 Lorazepam (Ativan Inj) 2 mg IV.PUSH Q1H PRN PRN Reason: for CIWA 15-20 Lorazepam (Ativan Inj) 2 mg IV.PUSH Q15M PRN PRN Reason: for CIWA > 20 Lorazepam (Ativan Inj) 1 mg IV.PUSH Q4H PRN PRN Reason: for CIWA 8-10 Melatonin (Melatonin) 5 mg PO HS PRN PRN Reason: INSOMNIA Multivitamins/Minerals (Theragran-M) 1 tab PO DAILY ANA Stop: 08/22/18 08:59 Nicotine (Habitrol 21 Mg Patch.24 Hr) 1 patch T-DERMAL DAILY PRN PRN Reason: Nicotine craving Patch Removal (Remove Old Patch) 1 each T-DERMAL HS PRN PRN Reason: REMOVE OLD NICOTINE PATCH Quetiapine Fumarate (Seroquel) 100 mg PO BID@ ANA Quetiapine Fumarate (Seroquel) 400 mg PO HS ANA Thiamine HCl (Vitamin B1) 100 mg PO DAILY ANA Trazodone HCl (Desyrel) 200 mg PO HS ANA Venlafaxine HCl (Effexor Xr) 225 mg PO DAILY ANA Allergies Allergy/AdvReac Type Severity Reaction Status Date / Time penicillin G Allergy Severe HIVES, Verified 08/16/18 01:36 SWELLING Home Medications Medication Instructions Recorded Confirmed Type quetiapine [Seroquel] 100 mg PO BID 08/16/18 08/16/18 History quetiapine [Seroquel] 400 mg PO HS 08/16/18 08/16/18 History trazodone 200 mg PO DAILY 08/16/18 08/16/18 History venlafaxine [Effexor XR] 225 mg PO DAILY 08/16/18 08/16/18 History Exam Vital signs: Vital Signs 08/15/18 23:46 08/16/18 03:19 08/16/18 05:40 Temperature 99.3 F Pulse Rate 161 H 130 H Respiratory Rate 18 18 Blood Pressure 171/70 H 171/70 H 130/79 Pulse Oximetry 96 97 08/16/18 07:00 08/16/18 07:15 08/16/18 08:25 Temperature 99.6 F Pulse Rate 107 H 107 H 110 H Respiratory Rate 20 Blood Pressure 125/81 Pulse Oximetry 98 08/16/18 11:22 08/16/18 14:30 Temperature 99.5 F Pulse Rate 130 H 95 H Respiratory Rate 20 20 Blood Pressure 128/86 128/66 Pulse Oximetry 98 99 Intake & Output 08/15/18 08/16/18 08/16/18 18:59 06:59 18:59 Intake Total 1999 Balance 1999 Weight 72.575 kg Intake: IV 1999 NS Inj 1,000 ML @ Wide Open IV. 1999 SIG BOLUS ANA Rx#:[id number] Narrative: GENERAL: WN, WD female resting in bed in NAD. SKIN: Warm and dry. HEENT: AT/NC. Pupils equal and round. MMM. NECK: Supple no tender LAD or JVD. HEART: RRR no m/r/g. LUNGS: CTAB without wheezes or crackles. ABDOMEN: +BS, soft, NT, ND. EXTREMITIES: No LE edema. 2+ pedal pulses. NEURO: Awake and alert. Nonfocal. Results - Labs CBC & Chem 7: 08/16/18 02:59 08/16/18 02:59 Labs: Laboratory Results - last 24 hr 08/16/18 08/16/18 08/16/18 00:05 00:05 02:59 WBC 12.8 H RBC 4.59 Hgb 14.3 Hct 41.9 MCV 91.3 MCH 31.3 MCHC 34.2 RDW 13.1 Plt Count 249 MPV 8.1 Neut % (Auto) 67.0 Lymph % (Auto) 21.5 [place] % (Auto) 11.0 H Eos % (Auto) 0.1 Baso % (Auto) 0.4 Neut # (Auto) 8.5 H Lymph # (Auto) 2.7 [place] # (Auto) 1.4 H Eos # (Auto) 0.0 Baso # (Auto) 0.0 WBC Differential . Differential Comment Auto diff final Sodium Potassium Chloride Carbon Dioxide Anion Gap BUN Creatinine Estimated GFR Random Glucose Calcium Total Bilirubin AST ALT Alkaline Phosphatase Total Protein Albumin TSH Free T4 Free T3 Urine Color Yellow Urine Clarity Cloudy H Urine pH 5.0 Ur Specific [place] 1.023 Urine Protein 30 H Urine Glucose (UA) Negative Urine Ketones Negative Urine Occult Blood Negative Urine Nitrate Negative Urine Bilirubin Negative Urine Urobilinogen Less than 2 Ur Leukocyte Esterase Negative Urine RBC 5 H Urine WBC 13 H Ur Squamous Epith Cells 81 Amorphous Sediment Few H Urine Mucus Many H Micro UA Comment Culture indicated Ur Microscopic Review Not Reportable Urine Culture Comments Culture indicated Salicylates Urine Opiates Screen Neg Acetaminophen Ur Barbiturates Screen Neg Ur Amphetamines Screen Neg U Benzodiazepines Scrn Neg [place] Urine Cocaine Screen Neg U Cannabinoids Screen Neg Serum Alcohol 08/16/18 08/16/18 08/16/18 02:59 02:59 02:59 WBC RBC Hgb Hct MCV MCH MCHC RDW Plt Count MPV Neut % (Auto) Lymph % (Auto) [place] % (Auto) Eos % (Auto) Baso % (Auto) Neut # (Auto) Lymph # (Auto) [place] # (Auto) Eos # (Auto) Baso # (Auto) WBC Differential Differential Comment Sodium 146 H Potassium 3.8 Chloride 111 H Carbon Dioxide 24.2 Anion Gap 11 BUN 10 Creatinine 0.93 Estimated GFR 72 L Random Glucose 104 Calcium 7.9 L Total Bilirubin 0.4 AST 21 ALT 18 Alkaline Phosphatase 62 Total Protein 7.9 Albumin 4.2 TSH 12.200 H Free T4 Free T3 Urine Color Urine Clarity Urine pH Ur Specific [place] Urine Protein Urine Glucose (UA) Urine Ketones Urine Occult Blood Urine Nitrate Urine Bilirubin Urine Urobilinogen Ur Leukocyte Esterase Urine RBC Urine WBC Ur Squamous Epith Cells Amorphous Sediment Urine Mucus Micro UA Comment Ur Microscopic Review Urine Culture Comments Salicylates 4.2 Urine Opiates Screen Acetaminophen Less than 2.0 L Ur Barbiturates Screen Ur Amphetamines Screen U Benzodiazepines Scrn [place] 0.1 L Urine Cocaine Screen U Cannabinoids Screen Serum Alcohol 153 H 08/16/18 08/16/18 02:59 09:25 WBC RBC Hgb Hct MCV MCH MCHC RDW Plt Count MPV Neut % (Auto) Lymph % (Auto) [place] % (Auto) Eos % (Auto) Baso % (Auto) Neut # (Auto) Lymph # (Auto) [place] # (Auto) Eos # (Auto) Baso # (Auto) WBC Differential Differential Comment Sodium Potassium Chloride Carbon Dioxide Anion Gap BUN Creatinine Estimated GFR Random Glucose Calcium Total Bilirubin AST ALT Alkaline Phosphatase Total Protein Albumin TSH Free T4 1.07 Free T3 4.77 H Urine Color Urine Clarity Urine pH Ur Specific [place] Urine Protein Urine Glucose (UA) Urine Ketones Urine Occult Blood Urine Nitrate Urine Bilirubin Urine Urobilinogen Ur Leukocyte Esterase Urine RBC Urine WBC Ur Squamous Epith Cells Amorphous Sediment Urine Mucus Micro UA Comment Ur Microscopic Review Urine Culture Comments Salicylates 3.2 Urine Opiates Screen Acetaminophen Ur Barbiturates Screen Ur Amphetamines Screen U Benzodiazepines Scrn [place] Urine Cocaine Screen U Cannabinoids Screen Serum Alcohol Assessment and Plan - Assessment (1) Bipolar affective disorder, depressed Code(s): F31.30 - Bipolar disorder, current episode depressed, mild or moderate severity, unspecified Status: Acute (2) Hypothyroidism Code(s): E03.9 - Hypothyroidism, unspecified Status: Chronic (3) Alcohol dependence Code(s): F10.20 - Alcohol dependence, uncomplicated Status: Chronic - Plan 28 year old female with a history of bipolar disorder, anxiety, and EtOH abuse admitted under [place] Act to psychiatry for alleging suicidal ideation to law enforcement. Hospitalist consulted because on lab review she has a mild leukocytosis and an elevated TSH. 1. Hypothyroidism - TSH 12.2 and patient symptomatic (cold intolerance, weight gain, menstrual irregularities) - Start levothyroxine 25 mcg daily - Plan on rechecking TSH in 6 weeks 2. Leukocytosis - WBC mildly elevated at 12.8 with essentially normal diff - Likely secondary to acute intoxication on presentation - No clinical signs of infection or fever - U/A with protein and WBC but otherwise negative for leuk esterase and nitrate - Urine culture pending, if positive will treat but for now since she is not symptomatic will hold off - Check CBC tomorrow 3. Suicidal ideation, depression - Management per psych 4. EtOH dependence - Serum EtOH elevated on admission - [facility] protocol - Rally pack DVT prophylaxis: ambulatory Discussed Condition With: The patient
[2018-08-16] MEDS ORDERED: Melatonin 5 MG Tablet PO PRN (21:00)
[2018-08-16] MEDS: traZODone 100 MG Tablet PO SCH (21:03)
[2018-08-16] MEDS: QUEtiapine 100 MG Tablet PO SCH (21:05)
--- NOTE | 2018-08-16 22:07 | ECG ---
Date Performed: 08/16/2018 Time Performed: 07:54:17 PTAGE: 28 years EKG: SINUS TACHYCARDIA ABNORMAL RHYTHM ECG PREVIOUS TRACING : 09/08/2009 10.24 DOCTOR: Almaz Gagnon Interpretating Date/Time 08/16/2018 22:05:06
[2018-08-17] MEDS: Folic Acid 1 MG Tablet PO SCH (08:26)
[2018-08-17] MEDS: Multivitamin/Minerals Therapeutic Tablet PO SCH (08:26)
[2018-08-17] MEDS: Venlafaxine XR 75 MG Capsule PO SCH (08:26)
[2018-08-17] MEDS: QUEtiapine 100 MG Tablet PO SCH ×2 (08:29→14:50)
[2018-08-17 08:40] LABS: Baso % (Auto) 0.8 % (0.0-2.0); Eos # (Auto) 0.1 th/mm3 (0.0-0.4); Hematocrit 35.9 % (35.0-46.0); Hemoglobin 12.3 gm/dL (11.6-15.3); Lymph # (Auto) 2.4 th/mm3 (1.0-4.8); Lymph % (Auto) 41.4 % (9.0-44.0); Mean Corpuscular HGB Conc 34.2 % (32.0-36.0); Mean Corpuscular Hemoglobin 31.5 pg (27.0-34.0); Mean Corpuscular Volume 91.8 fL (80.0-100.0); Mean Platelet Volume 8.7 fL (7.0-11.0); Mono # (Auto) 0.9 th/mm3 (0.0-0.9); Mono % (Auto) 15.3 % (0.0-8.0); Neut # (Auto) 2.4 th/mm3 (1.8-7.7); Neut % (Auto) 40.5 % (16.0-70.0); Platelet Count 189 th/mm3 (150-450); Red Cell Distribution Width 12.6 % (11.6-17.2); White Blood Count 5.8 th/mm3 (4.0-11.0)
[2018-08-17 09:03] LABS: Albumin 3.3 g/dL (3.4-5.0); Anion Gap 9 meq/L (5-15); Aspartate Aminotransferase 31 U/L (15-37); Blood Urea Nitrogen 13 mg/dL (7-18); Calcium 7.6 mg/dL (8.5-10.1); Carbon Dioxide 23.4 meq/L (21.0-32.0); Chloride 108 meq/L (98-107); Glomerular Filtration Rate 79 mL/min (>89); Glucose,Random 83 mg/dL (74-106); Potassium 3.7 meq/L (3.5-5.1); Sodium 140 meq/L (136-145)
[2018-08-17 09:05] LABS: Alanine Aminotransferase 17 U/L (10-53); Cholesterol 111 mg/dL (120-200); Triglycerides 86 mg/dL (42-150)
[2018-08-17 09:07] LABS: Alkaline Phosphatase 48 U/L (45-117); Chol/HDL Ratio 3.32 Ratio; HDL Cholesterol 33.4 mg/dL (40.0-60.0); LDL Cholesterol,Calculated 60 mg/dL (0-99); Total Protein 5.8 g/dL (6.4-8.2)
--- NOTE | 2018-08-17 11:28 | P.PNIM ---
Subjective Interval history: Pt seen and examined. Only complaint is dry lips. Denies CP, SOB, fever, chills , cough. Physical Exam Vital signs: Vital Signs 08/16/18 14:30 08/16/18 18:00 08/16/18 18:29 Temperature 99.5 F 98.0 F 98.0 F Pulse Rate 95 H 89 89 Respiratory Rate 20 16 16 Blood Pressure 128/66 125/78 125/78 Pulse Oximetry 99 98 98 08/16/18 23:40 08/17/18 05:41 Temperature 98.5 F 98.3 F Pulse Rate 95 H 90 Respiratory Rate 17 17 Blood Pressure 98/54 L 114/63 Pulse Oximetry 95 95 Intake & Output 08/16/18 08/17/18 08/17/18 18:59 06:59 18:59 Intake Total 1999 360 / 360 Balance 1999 360 / 360 Weight 69.1 kg Intake: IV 1999 NS Inj 1,000 ML @ Wide Open IV. 1999 SIG BOLUS ANA Rx#:[id number] Oral Other: Weight On Admission 69.1 kg Narrative: GENERAL: WN, WD cooperative female ambulating in NAD. SKIN: Warm and dry. NECK: Thyroid not enlarged or nodular. HEART: RRR no m/r/g. LUNGS: CTAB without wheezes or crackles. ABDOMEN: +BS, soft, NT, ND. EXTREMITIES: No LE edema. NEURO: Awake and alert. Nonfocal. Results - Labs CBC & Chem 7: 08/17/18 07:36 08/17/18 07:36 Laboratory Results - last 24 hr 08/17/18 08/17/18 07:36 07:36 WBC 5.8 RBC 3.90 L Hgb 12.3 D Hct 35.9 MCV 91.8 MCH 31.5 MCHC 34.2 RDW 12.6 Plt Count 189 MPV 8.7 Neut % (Auto) 40.5 Lymph % (Auto) 41.4 [place] % (Auto) 15.3 H Eos % (Auto) 2.0 Baso % (Auto) 0.8 Neut # (Auto) 2.4 Lymph # (Auto) 2.4 [place] # (Auto) 0.9 Eos # (Auto) 0.1 Baso # (Auto) 0.0 WBC Differential . Differential Comment Auto diff final Sodium 140 Potassium 3.7 Chloride 108 H Carbon Dioxide 23.4 Anion Gap 9 BUN 13 Creatinine 0.86 Estimated GFR 79 L Random Glucose 83 Calcium 7.6 L Total Bilirubin 0.7 AST 31 ALT 17 Alkaline Phosphatase 48 Total Protein 5.8 L D Albumin 3.3 L D Triglycerides 86 Cholesterol 111 L LDL Cholesterol, Calc 60 HDL Cholesterol 33.4 L Cholesterol/HDL Ratio 3.32 Assessment and Plan - Assessment (1) Bipolar affective disorder, depressed Code(s): F31.30 - Bipolar disorder, current episode depressed, mild or moderate severity, unspecified Status: Acute (2) Hypothyroidism Code(s): E03.9 - Hypothyroidism, unspecified Status: Chronic (3) Alcohol dependence Code(s): F10.20 - Alcohol dependence, uncomplicated Status: Chronic - Plan 28 year old female with a history of bipolar disorder, anxiety, and EtOH abuse admitted under [place] Act to psychiatry for alleging suicidal ideation to law enforcement. Hospitalist consulted because on lab review she has a mild leukocytosis and an elevated TSH. 1. Hypothyroidism - TSH 12.2 and patient symptomatic (cold intolerance, weight gain, menstrual irregularities) - Start levothyroxine 25 mcg daily - Educated patient on proper administration of medication (first thing in the AM , full glass of water, empty stomach, no other meds with it) - Plan on rechecking TSH in 6 weeks 2. Leukocytosis - resolved - WBC mildly elevated at 12.8 with essentially normal diff on presentation, likely secondary to acute intoxication - WBC normalized today - No clinical signs of infection or fever - U/A with protein and WBC but otherwise negative for leuk esterase and nitrate and patient asymptomatic 3. Suicidal ideation, depression - Management per psych 4. EtOH dependence - Serum EtOH elevated on admission - [facility] protocol - Rally pack 5. Chapped lips - Chapstick PRN DVT prophylaxis: ambulatory Patient medically stable. Will sign off at this time. Please reconsult if needed. Thank you. Discussed Condition With: Patient
[2018-08-17 13:24] LABS: Hemoglobin A1c 5.3 % (4.3-6.0)
--- NOTE | 2018-08-17 14:07 | P.PNPSY ---
Subjective Chief Complaint: Bipolar Depression; Alcohol Abuse Remarks: Reviewed electronic medical records and discussed case with staff. Follow-up was conducted in patient's room with SHAISTA Ferguson. Patient states that she is under court order due to her addiction to alcohol. She has been on the waiting list for [facility] [employer] through [employer]. She states that she has been struggling and she is unable to stop drinking on her own. I provided her with information about Detox through [facility] and the [facility] program. Patient feels that she is seeing some benefit from her Effexor, Seroquel and Trazodone. Review of Systems All other systems reviewed negative except as stated in HPI Mental Status Examination Appearance: Appropriate Consciousness: Alert Orientation: x4 Motor Activity: Normal gait Speech: Unremarkable Language: Adequate Fund of Knowledge: Adequate Attention and Concentration: Adequate Memory: Unremarkable (Grossly intact on clinical exam) Mood: Sad Affect: Sad, Flat Thought Process & Associations: Intact, Logical, Linear Thought Content: Appropriate Hallucination Type: None Delusion Type: None Suicidal Ideation: No Suicidal Plan: No Suicidal Intention: No Homicidal Ideation: No Homicidal Plan: No Homicidal Intention: No Insight: Adequate Judgment: Adequate Assessment and Plan - Assessment (1) Bipolar affective disorder, depressed Code(s): F31.30 - Bipolar disorder, current episode depressed, mild or moderate severity, unspecified Status: Acute (2) Alcohol abuse Code(s): F10.10 - Alcohol abuse, uncomplicated Status: Acute - Plan Plan: Patient is stable. Continue plan of care. Patient will meet with psychiatrist on Saturday for discharge planning. Justification for Continued Inpatient Stay: Moving patient to a less restrictive environment may result in her decompensation. Request Healthcare Surrogate/Guardian Advocate?: No
[2018-08-17] MEDS: traZODone 100 MG Tablet PO SCH (21:19)
[2018-08-18] MEDS: Venlafaxine XR 75 MG Capsule PO SCH (09:04)
[2018-08-18] MEDS: Multivitamin/Minerals Therapeutic Tablet PO SCH (09:04)
[2018-08-18] MEDS: Folic Acid 1 MG Tablet PO SCH (09:04)
[2018-08-18] MEDS: QUEtiapine 100 MG Tablet PO SCH ×2 (09:07→15:23)
[2018-08-18] MEDS: LORazepam 1 MG Tablet PO PRN ×2 (17:58→22:00)
--- NOTE | 2018-08-18 18:38 | P.PNPSY ---
Subjective Chief Complaint: Bipolar Depression; Alcohol Abuse Remarks: Patient seen for follow up; chart reviewed. Discussion with nursing staff reported that patient DESMOND has scored low, reported being worried about her belongings and is mildly intrusive at times. Patient was found heavily on unit noted B, cooperative. Patient states she is feeling "good" stating that she was intoxicated time where she had endorse suicide ideations which she does not recall. Patient states that she has blacked out. Patient recalls having bought liquor at the store prior to admission at the point of liquor and states that her stressors include not having employee, having lost his license due to her alcohol use with poor motivation and worsening of depression recently. Patient states having spoken to her mother yesterday who had followed [place] act. Patient states he sleeping well, mood has been "not as depressed, denying any suicide ideations today. Review of Systems All other systems reviewed negative except as stated in HPI Mental Status Examination Appearance: Appropriate Consciousness: Alert Orientation: x4 Motor Activity: Normal gait Speech: Unremarkable Language: Adequate Fund of Knowledge: Adequate Attention and Concentration: Adequate Memory: Unremarkable (Grossly intact on clinical exam) Mood: Sad Affect: Sad Thought Process & Associations: Intact, Logical, Linear Thought Content: Appropriate Hallucination Type: None Delusion Type: None Suicidal Ideation: No Suicidal Plan: No Suicidal Intention: No Homicidal Ideation: No Homicidal Plan: No Homicidal Intention: No Insight: Adequate Judgment: Adequate Assessment and Plan - Assessment (1) Bipolar affective disorder, depressed Code(s): F31.30 - Bipolar disorder, current episode depressed, mild or moderate severity, unspecified Status: Acute (2) Alcohol dependence Code(s): F10.20 - Alcohol dependence, uncomplicated Status: Chronic - Plan Plan: Patient states feeling less depressed, had medications recently adjusted denying any suicide ideations. Patient aware that her mother had filed [place] act but also states that she is currently on a wait list for inpatient rehabilitation program. We will continue current treatment. We will continue to monitor mood and behavior. Discharge planning in progress. Justification for Continued Inpatient Stay: At risk of further decompensation at lower level care. Request Healthcare Surrogate/Guardian Advocate?: No
[2018-08-18] MEDS: traZODone 100 MG Tablet PO SCH (21:27)
[2018-08-19] MEDS: Folic Acid 1 MG Tablet PO SCH (08:22)
[2018-08-19] MEDS: Venlafaxine XR 75 MG Capsule PO SCH (08:22)
[2018-08-19] MEDS: LORazepam 1 MG Tablet PO PRN ×3 (08:22→21:36)
[2018-08-19] MEDS: QUEtiapine 100 MG Tablet PO SCH ×2 (08:22→15:30)
[2018-08-19] MEDS: Multivitamin/Minerals Therapeutic Tablet PO SCH (08:22)
[2018-08-19] MEDS: traZODone 100 MG Tablet PO SCH (20:27)
--- NOTE | 2018-08-19 23:47 | P.PNPSY ---
Subjective Chief Complaint: Bipolar Depression; Alcohol Abuse Remarks: Patient seen for follow up; chart reviewed. Discussion with nursing staff reported patient continues to be somewhat intrusive, but no behavioral disturbances. Patient was found heavily on the unit noted B, cooperative. Patient states that she is scheduled for court appearance for the act on and would like to be able to be discharged tomorrow to be able to attend his hearing. Patient states that she is not feeling suicidal again mentioning that she had felt this way when she was intoxicated, denying any tremors or symptoms of withdrawal at this time. Patient mentions having spoken to her mother who she states agrees for patient stay with her until court hearing on . She states feeling somewhat depressed knowing that she is on parole but denying any suicide ideations, tolerating medications well, sleeping well, denying any perceptional services or delusions. Review of Systems All other systems reviewed negative except as stated in HPI Mental Status Examination Appearance: Appropriate Consciousness: Alert Orientation: x4 Motor Activity: Normal gait Speech: Unremarkable Language: Adequate Fund of Knowledge: Adequate Attention and Concentration: Adequate Memory: Unremarkable (Grossly intact on clinical exam) Mood: Sad Affect: Appropriate Thought Process & Associations: Intact, Logical, Linear Thought Content: Appropriate Hallucination Type: None Delusion Type: None Suicidal Ideation: No Suicidal Plan: No Suicidal Intention: No Homicidal Ideation: No Homicidal Plan: No Homicidal Intention: No Insight: Adequate Judgment: Adequate Assessment and Plan - Assessment (1) Bipolar affective disorder, depressed Code(s): F31.30 - Bipolar disorder, current episode depressed, mild or moderate severity, unspecified Status: Acute (2) Alcohol dependence Code(s): F10.20 - Alcohol dependence, uncomplicated Status: Chronic - Plan Plan: Patient continues to have some depressed mood but denying any suicide ideations , states be motivated to engage in rehabilitation program aware that mother has filed for act. Patient scheduled for court hearing for this on and requesting discharge tomorrow. We will continue current treatment. We will continue to monitor mood and behavior. He will make contact with patient's mother to coordinate discharge tomorrow. Discharge planning in progress. Justification for Continued Inpatient Stay: At risk of further decompensation at lower level of care. Request Healthcare Surrogate/Guardian Advocate?: No
[2018-08-20 07:51] VITALS: BP 132/70; PULSE 123; RESP 17; TEMP 98.5; O2SAT 95
[2018-08-20] MEDS: Folic Acid 1 MG Tablet PO SCH (08:20)
[2018-08-20] MEDS: Multivitamin/Minerals Therapeutic Tablet PO SCH (08:20)
[2018-08-20] MEDS: Venlafaxine XR 75 MG Capsule PO SCH (08:21)
[2018-08-20] MEDS: QUEtiapine 100 MG Tablet PO SCH ×2 (08:21→15:37)
[2018-08-20] MEDS: LORazepam 1 MG Tablet PO PRN ×2 (08:41→13:08)
--- NOTE | 2018-08-20 18:17 | P.DSPSY ---
Psychiatry Discharge Summary Inpatient Psychiatric care?: Yes Advance Directives: No Reason for Unknown:: Other Mental Health Advance Directive: No Health Care Proxy: No - Admission Admission Date: August 16, 2018 15:00 - Admission Diagnosis (1) Bipolar affective disorder, depressed Code(s): F31.30 - Bipolar disorder, current episode depressed, mild or moderate severity, unspecified (2) Alcohol abuse Code(s): F10.10 - Alcohol abuse, uncomplicated Brief History: Ms. Rain is a 28-year-old female with a reported history of bipolar illness and anxiety who presents under a Pope act by law enforcement alleging suicidal ideation. She was intoxicated with alcohol on presentation here and was somewhat combative. Reviewing the electronic medical record, I note that the patient has a history of ED visits for substance use issues but no previous psychiatric admissions within our system. Patient seen and examined. Chart reviewed. Case discussed with nursing staff. On my reevaluation now, the patient is considerably clearer. She is clinically sober. She presents as anhedonic and withdrawn. She says that she has been feeling depressed for the last 1-2 months in the setting of trying to cut down her alcohol use. She endorses hopeless, worthless and guilty feelings. Her concentration and energy levels are poor. She denies any suicidal ideation at this time though and says she has no recollection of making any sort of suicidal statements to officers. She reports a questionable history of hypomanic/manic episodes in the past. Denies any audiovisual hallucinations. Denies any command auditory hallucinations. She says "I do not have a lot of hopes." Remainder of the psychiatric ROS is negative. No acute physical complaints. Past psychiatric history: Patient reports previous diagnoses as noted above. She follows at [facility] and is reportedly prescribed Seroquel. She reports that, Effexor and trazodone. She does not believe that the daytime dose of Seroquel is holding her throughout the day. She was most recently admitted to [facility] in May for suicidal ideation in the setting of alcohol. She denies a history of suicide attempts. Denies a history of nonsuicidal self- injurious behavior. She does endorse a history of domestic battery charges but otherwise reports no history of violence behavior. Family history: The patient denies a family history of mental illness or suicide. Chemical dependency history: The patient reports she has been drinking 1-2 pints of liquor daily. Last use was prior to admission. She denies a history of DTs or seizures. She does endorse a history of 2 previous DUIs. No reported substance use otherwise. Social history: She lives with her cousin. She is high school educated. She is unemployed. She is single with a 9-year-old daughter who resides with her mother. She denies any history. Denies any legal history. Denies any access to guns or firearms. Denies any worship or spiritual beliefs. Denies any history of trauma. I called over to [facility] for med list: Seroquel 50mg BID and 400mg qHS Effexor XR 225mg daily trazodone 200mg qHS. - Inpatient Certification I certify that the inpatient services were ordered in accordance with Medicare regulations governing the order. This includes certification that hospital inpatient services are reasonable and necessary and in the case of services not specified as inpatient-only under 42 CFR 419.22(n), that they are appropriately provided as inpatient services in accordance to with the 2-midnight benchmark under 43 CFR 412.3(e) I certify that inpatient psychiatric hospital services are medically necessary. Evaluation and treatment and/or diagnostic testing are expected to improve the patient's condition. The patient needs on a daily basis, active treatment furnished directly by or requiring the supervision of inpatient psychiatric facility personnel. Estimated Total Length of Stay (Days): 7 Plans for Post Hospital Care: Not yet determined Tobacco Use In Past 30 Days: Yes How Often Do You Have a Drink Containing Alcohol: 2 to 3 times a week Hospital Course: Ms. Rain is a 28-year-old female with a reported history of bipolar disorder and anxiety, with substance use history of alcohol use disorder, who presents under a Pope act by law enforcement alleging suicidal ideation. She was intoxicated with alcohol on presentation here and was noted to be somewhat combative, with history of ED visits for substance use issues but no previous psychiatric admissions at this facility. Patient was resumed on medications which she tolerated well with no notable adverse drug reactions. She was observed by staff not to have had any behavioral disturbances, denied suicidal ideation and denied any homicidal ideations. Patient was able to reach and maintain stable mood during admission and was noted to participate with staff adequately. Patient was noted to participate in self-care, engaged with staff and maintaining adequate hygiene. Patient reported feeling hopeful, future oriented and motivated to engage in rehabilitation program for alcohol use. Treatment team was able to set up outpatient follow-up appointments which patient can continue for continuity of care. Upon discharge patient stated feeling "good" reported feeling well with treatment, agreed to continue treatment and return home with her mother. Patient from a mental health perspective no longer met criteria for continued inpatient level of care. Patient denied any SI, HI, perceptual disturbances or delusions. Weighing the acute, chronic, and protective factors and based on the available evidence, I obstetrics nurse to a reasonable degree of medical certainty that the patient is at low imminent risk of harm to self or others for mental illness as defined under the Pope act and her level of function is adequate as observed on the unit for planned level of outpatient care. Patient was counseled regarding warning signs for need to return to the psychiatric emergency room as part of the general safety plan. Patient advised to call 911 or go to nearest ED in case of emergency. Patient agrees with plan. - Discharge Discharge Date: 08/20/18 - Discharge Diagnosis (1) Bipolar affective disorder, depressed Code(s): F31.30 - Bipolar disorder, current episode depressed, mild or moderate severity, unspecified Status: Acute (2) Alcohol abuse Code(s): F10.10 - Alcohol abuse, uncomplicated Status: Acute Discharge Disposition: Home - Discharge Instructions Discharge Diet: Regular Diet Activities You Can Perform: Regular- No Restrictions - Discharge Time > 30 minutes Mental Status Examination Appearance: Appropriate Consciousness: Alert Orientation: x4 Motor Activity: Normal gait Speech: Unremarkable Language: Adequate Fund of Knowledge: Adequate Attention and Concentration: Adequate Memory: Unremarkable (Grossly intact on clinical exam) Mood: Appropriate Affect: Appropriate Thought Process & Associations: Intact, Logical, Linear Thought Content: Appropriate Hallucination Type: None Delusion Type: None Suicidal Ideation: No Suicidal Plan: No Suicidal Intention: No Homicidal Ideation: No Homicidal Plan: No Homicidal Intention: No Insight: Adequate Judgment: Adequate Discharge/Advance Care Plan - Results Vital Signs: Last Vital Signs Temp 98.5 F 08/20/18 07:50 Pulse 123 H 08/20/18 07:50 Resp 17 08/20/18 07:50 BP 132/70 08/20/18 07:50 Pulse Ox 95 08/20/18 07:50 Lab Results: Laboratory Results Hemoglobin A1c 5.3 % (4.3-6.0) 08/17/18 07:36 Triglycerides 86 mg/dL (42-150) 08/17/18 07:36 Cholesterol 111 mg/dL (120-200) L 08/17/18 07:36 LDL Cholesterol, Calc 60 mg/dL (0-99) 08/17/18 07:36 HDL Cholesterol 33.4 mg/dL (40.0-60.0) L 08/17/18 07:36 TSH 12.200 uIU/mL (0.358-3.740) H 08/16/18 02:59 Free T4 1.07 ng/dL (0.76-1.46) 08/16/18 02:59 Free T3 4.77 pg/mL (2.18-3.98) H 08/16/18 02:59 Urine Culture Comments Culture indicated 08/16/18 00:05 Victoria Vera 0.1 meq/L (0.5-1.5) L 08/16/18 02:59 Summary of Procedures: none Pending Results: None - Medications Number of antipsychotic medications at discharge: 1 - Discharge Care Plan Goals to Promote Your Health: * To prevent worsening of your condition and complications * To maintain your health at the optimal level Directions to Meet Your Goals: Take your medications as prescribed Follow your dietary instruction Follow activity as directed Keep your appointments as scheduled Take your immunizations and boosters as scheduled If your symptoms worsen call your PCP, if no PCP go to Urgent Care Center or Emergency Room For 24/06 questions related to your inpatient stay or results of tests pending at discharge, please contact Dr. Gerald Haynes MD at Smoking is Dangerous to Your Health. Avoid second hand smoking
== END 2018-08-20 16:55 | disposition home or self-care (01) ==
LOC: NEPE 23:36 → NEDA 08-16 15:00 → H260 08-16 15:51
PROVIDERS: ADMIT Student in an Organized Health Care Education/Training Program; ATTEND Student in an Organized Health Care Education/Training Program